=== PATIENT | female | born 1945 | race Caucasian/White ===

== ENCOUNTER 2023-02-06 19:53 | Emergency (ER) | payer MEDICARE, OTHER ==
[~2023-02-06] VITALS: Ht 147.3 cm; Wt 94.1 kg
[2023-02-06] MEDS ORDERED: IPRATROPIUM BROM 0.5 MG/2.5ML INH SOL NEB ONE (20:30)
[2023-02-06] MEDS ORDERED: ALBUTEROL SULF 2.5 MG/0.5ML(0.5%) NEB SOLN NEB ONE (20:30)
[2023-02-06 20:57] LABS: Albumin 3.5 g/dL (3.4-5.0); Calcium 9.1 mg/dL (8.5-10.1); Magnesium 2.3 mg/dL (1.6-2.6); Potassium 4.2 mmol/L (3.5-5.1)
[2023-02-06 21:01] LABS: BUN/Creatinine Ratio 21.1 (10.0-20.0); Bilirubin, Total 0.3 mg/dL (0.2-1.0); Total Protein 6.6 g/dL (6.4-8.2)
[2023-02-06 21:02] LABS: Basophils # (auto) 0.1 10 ^3/uL (0-0.2); Basophils % (auto) 0.8 % (0.0-2.0); Eosinophils # (auto) 0.2 10 ^3/uL (0-0.8); Eosinophils % (auto) 2.7 % (0.0-7.0); Hematocrit 37.4 % (36.0-46.0); Hemoglobin 12.6 g/dL (12.2-16.2); Lymphocytes # (auto) 3.1 10 ^3/uL (0.4-5.4); Lymphocytes % (auto) 38.3 % (10.0-50.0); Mean Corpuscular Hemoglobin 28.6 pg (28.0-32.0); Mean Corpuscular Hgb Conc. 33.7 g/dL (32.0-36.0); Mean Corpuscular Volume 84.8 fL (80.0-100.0); Monocytes # (auto) 0.6 10 ^3/uL (0-1.3); Monocytes % (auto) 7.6 % (0.0-12.0); Neutrophils # (auto) 4.1 10 ^3/uL (1.6-8.6); Neutrophils % (auto) 50.6 % (37.0-80.0); Nucleated Red Blood Cells % 0.1 %; Red Blood Cells 4.42 10^6/uL (4.0-5.20); Red Cell Distribution Width 14.2 % (11.8-14.3); White Blood Cell 8.1 10^3/uL (4.4-10.8)
[2023-02-06 21:06] LABS: Urine Bacteria FEW /hpf (None Seen); Urine Blood Negative /uL (Negative); Urine Mucus FEW (None Seen); Urine Specific Gravity 1.025 (1.001-1.035); Urine Sperm PRESENT /hpf (None Seen); Urine WBC 11 /hpf (0 - 5)
[2023-02-07] MEDS ORDERED: ALBUTEROL SULF 2.5 MG/0.5ML(0.5%) NEB SOLN NEB ONE (00:30)
[2023-02-07] MEDS ORDERED: IPRATROPIUM BROM 0.5 MG/2.5ML INH SOL NEB ONE (00:30)
[2023-02-07] MEDS ORDERED: DexAMETHasone SOD PHOS 10MG/1ML VIAL INJ IM ONE (00:30)
[2023-02-07] MEDS ORDERED: ALBU108A5 IN (02:44)
[2023-02-07] MEDS ORDERED: AZIT250T9 PO (02:44)
[2023-02-07] MEDS ORDERED: BENZ100C97 PO (02:44)
[2023-02-07] MEDS ORDERED: PRED20TA2 PO (02:44)
[2023-02-07 03:20] VITALS: BP 127/55
[2023-02-07] MEDS ORDERED: HYDROcodone-ACET 5/325MG TAB PO ONE (03:45)
== END 2023-02-07 03:57 | disposition home or self-care (01) ==
LOC: ER 19:58
DX: J40 Bronchitis, not specified as acute or chronic (principal); E86.0 Dehydration; J06.9 Acute upper respiratory infection, unspecified; I10 Essential (primary) hypertension; Z20.822 Contact with and (suspected) exposure to COVID-19
CPT/HCPCS: 36415; 71046; 80053; 81001; 83735; 84484; 85025; 85379; 87426; 87804; 93005; 94640; 96372; 99285; J1100; J7644